=== PATIENT | male | born 2000 | race Asian ===

== ENCOUNTER 2020-06-03 17:04 | Inpatient (IN) | payer MEDICAID, OTHER ==
[~2020-06-03] VITALS: Ht 177.8 cm; Wt 68.4 kg
[2020-06-03 19:24] LABS: BASOPHILS % (AUTO) 0.7 % (0.0-2.0); EOSINOPHILS % (AUTO) 3.7 % (1.0-6.0); HEMATOCRIT 38.6 % (41-53); HEMOGLOBIN 12.7 g/dL (13.5-17.5); LYMPHOCYTES # (AUTO) 1.7 K/uL (1.0-4.8); LYMPHOCYTES % (AUTO) 21.3 % (22.0-44.0); MEAN CORPUSCULAR HEMOGLOBIN 31.2 pg (26.0-34.0); MEAN CORPUSCULAR VOLUME 95 fL (80-100); MONOCYTES # (AUTO) 0.4 K/uL (0.1-1.0); MONOCYTES % (AUTO) 4.6 % (2.0-9.0); NEUTROPHILS # (AUTO) 5.6 K/uL (1.8-7.7); NEUTROPHILS % (AUTO) 69.7 % (40.0-70.0); PLATELET COUNT (AUTO) 254 K/uL (150-450); RED BLOOD CELL COUNT(AUTO) 4.08 MIL/uL (4.50-5.90); RED CELL DISTRIBUTION WIDTH 13.3 % (11.5-14.5)
[2020-06-03 19:56] LABS: ANION GAP 8 mmol/L (8-16); CALCIUM, TOTAL 10.1 mg/dL (8.8-10.5); CARBON DIOXIDE 31 mmol/L (22-29); CHLORIDE 106 mmol/L (98-107); CREATININE 0.95 mg/dL (0.60-1.30); GLOMERULAR FILTR. RATE CALC > 60 mL/min (>60); GLUCOSE,RANDOM 97 mg/dL (70-110); POTASSIUM 3.9 mmol/L (3.5-5.1); SODIUM SERUM 145 mmol/L (136-145); UREA NITROGEN, BLOOD 7 mg/dL (7-18)
[2020-06-03 20:00] LABS: ALANINE AMINOTRANSFERASE 18 U/L (12-78); ALBUMIN 4.7 g/dL (3.4-5.0); ALKALINE PHOSPHATASE 75 U/L (46-116); ASPARTATE AMINOTRANSFERASE 17 U/L (15-37); BILIRUBIN,TOTAL 0.3 mg/dL (0.1-1.0)
[2020-06-03 21:05] LABS: AMPHET/METH SCREEN,URINE NEGATIVE (NEGATIVE); BARBITURATE SCREEN, URINE NEGATIVE (NEGATIVE); BENZODIAZEPINES SCREEN,URINE NEGATIVE (NEGATIVE); CANNABINOID SCREEN,URINE NEGATIVE (NEGATIVE); COCAINE SCREEN,URINE NEGATIVE (NEGATIVE); METHADONE SCREEN, URINE NEGATIVE (NEGATIVE); OPIATE SCREEN,URINE NEGATIVE (NEGATIVE); PHENCYCLIDINE SCREEN,URINE NEGATIVE (NEGATIVE)
[2020-06-03 22:18] LABS: COVID AG,FIA SOURCE NASOPHARYNGEAL
[2020-06-03] MEDS ORDERED: HALOPERIDOL 5 MG TABLET PO PRN (23:00)
[2020-06-03] MEDS ORDERED: ZOLPIDEM TARTRATE 10 MG TABLET PO PRN (23:00)
[2020-06-04 01:11] VITALS: BP 137/81
[2020-06-04] MEDS ORDERED: INFLUENZA VIRUS VACCINE QVS 2020-21 (6MO+)/PF 60 MCG/0.5 ML SYRINGE IM ONE (03:45)
[2020-06-04] MEDS ORDERED: ACETAMINOPHEN 325 MG TABLET PO PRN (08:30)
[2020-06-04] MEDS ORDERED: DOCUSATE SODIUM 100 MG CAPSULE PO PRN (08:30)
[2020-06-04] MEDS ORDERED: MAGNESIUM HYDROXIDE SUSPENSION 30 ML UDCUP PO PRN (08:30)
[2020-06-04] MEDS ORDERED: ONDANSETRON HCL 4 MG TABLET PO PRN (08:30)
[2020-06-04] MEDS ORDERED: ALBUTEROL SULFATE HFA 90 MCG/PUFF 8 GM INHALER IH PRN (08:30)
[2020-06-04] MEDS ORDERED: LOPERAMIDE HCL 2 MG CAPSULE PO PRN (08:30)
[2020-06-04] MEDS ORDERED: CloNIDine HCL 0.1 MG TABLET PO PRN (08:30)
[2020-06-04] MEDS ORDERED: MAG HYDROX/AL HYDROX/SIMETH ES 30 ML SUSPENSION UDCUP PO PRN (08:30)
[2020-06-04] MEDS ORDERED: IBUPROFEN 400 MG TABLET PO PRN (08:30)
[2020-06-04] MEDS ORDERED: GuaiFENesin/D-METHORPHAN [SUGAR-FREE] 200-20MG/10 ML SYRUP UDCUP PO PRN (08:30)
[2020-06-04] MEDS ORDERED: NICOTINE 14 MG/24 HOUR PATCH TD PRN (08:30)
[2020-06-04 09:08] VITALS: BP 122/65
[2020-06-04] MEDS: LORazepam 2 MG TABLET PO PRN (09:57)
[2020-06-04] MEDS: ESCITALOPRAM OXALATE 10 MG TABLET PO SCH (12:23)
[2020-06-04 16:00] VITALS: BP 103/57
[2020-06-05 06:50] VITALS: BP 134/64
[2020-06-05] MEDS: ESCITALOPRAM OXALATE 10 MG TABLET PO SCH (08:57)
[2020-06-05 09:07] VITALS: BP 111/61
[2020-06-05 16:49] VITALS: BP 123/63
[2020-06-06 04:56] VITALS: BP 121/72
[2020-06-06] MEDS: ESCITALOPRAM OXALATE 10 MG TABLET PO SCH (08:32)
[2020-06-06 08:34] VITALS: BP 110/64
[2020-06-06 16:26] VITALS: BP 114/77
[2020-06-07 02:26] VITALS: BP 134/86
[2020-06-07 08:43] VITALS: BP 112/69
[2020-06-07] MEDS: ESCITALOPRAM OXALATE 10 MG TABLET PO SCH (08:57)
[2020-06-07] MEDS: LORazepam 2 MG TABLET PO PRN (08:59)
[2020-06-07 16:22] VITALS: BP 114/60
[2020-06-08 05:46] VITALS: BP 114/83
[2020-06-08 07:45] LABS: COVID AG,FIA SOURCE NASOPHARYNGEAL
[2020-06-08] MEDS: ESCITALOPRAM OXALATE 20 MG TABLET PO SCH (08:01)
[2020-06-08 08:33] VITALS: BP 127/75
[2020-06-08 16:31] VITALS: BP 125/74
[2020-06-09 04:59] VITALS: BP 140/84
[2020-06-09] MEDS: ESCITALOPRAM OXALATE 20 MG TABLET PO SCH (08:31)
[2020-06-09 09:30] VITALS: BP 141/78
[2020-06-09 16:45] VITALS: BP 137/64
[2020-06-10 06:02] VITALS: BP 111/67
[2020-06-10] MEDS: ESCITALOPRAM OXALATE 20 MG TABLET PO SCH (08:42)
[2020-06-10] MEDS: LORazepam 2 MG TABLET PO PRN (08:48)
[2020-06-10 08:49] VITALS: BP 115/81
[2020-06-10 16:20] VITALS: BP 116/70
[2020-06-11 00:39] VITALS: BP 122/68
[2020-06-11] MEDS: ESCITALOPRAM OXALATE 20 MG TABLET PO SCH (08:31)
[2020-06-11 08:47] VITALS: BP 121/73
[2020-06-11 16:25] VITALS: BP 132/86
[2020-06-12 05:44] VITALS: BP 114/60
[2020-06-12] MEDS: ESCITALOPRAM OXALATE 20 MG TABLET PO SCH (08:34)
[2020-06-12 08:40] VITALS: BP 116/64
[2020-06-12 16:21] VITALS: BP 115/75
[2020-06-13 06:31] VITALS: BP 126/60
[2020-06-13] MEDS: PETROLATUM,WHITE 28 GM JELLY TP PRN (06:32)
[2020-06-13 08:11] VITALS: BP 114/68
[2020-06-13] MEDS: ESCITALOPRAM OXALATE 20 MG TABLET PO SCH (09:26)
[2020-06-13 16:16] VITALS: BP 111/63
[2020-06-14 04:50] VITALS: BP 108/61
[2020-06-14 08:34] VITALS: BP 128/71
[2020-06-14] MEDS: ESCITALOPRAM OXALATE 20 MG TABLET PO SCH (08:53)
[2020-06-14] MEDS: PETROLATUM,WHITE 28 GM JELLY TP PRN (08:57)
[2020-06-14] MEDS ORDERED: ESCI20TA87 PO (12:18)
== END 2020-06-14 13:12 | disposition home or self-care (01) | DRG 751 ==
LOC: EMS 17:04 → B2S 22:59
PROVIDERS: ADMIT Psychiatry & Neurology Child & Adolescent Psychiatry; ATTEND Psychiatry & Neurology Child & Adolescent Psychiatry
DX: F33.2 Major depressive disorder, recurrent severe without psychotic features (principal); R45.851 Suicidal ideations; D64.9 Anemia, unspecified; I95.9 Hypotension, unspecified; G44.209 Tension-type headache, unspecified, not intractable; F41.0 Panic disorder [episodic paroxysmal anxiety]; Z20.822 Contact with and (suspected) exposure to COVID-19
CPT/HCPCS: 87426; 90686; 99285; G0480